=== PATIENT | female | born 1965 | race Caucasian/White ===

== ENCOUNTER 2019-05-26 15:56 | Emergency (ER) | payer OTHER ==
[2019-05-26 16:18] VITALS: BP 128/67
--- NOTE | 2019-05-26 16:43 | ED ---
Abdominal Pain/Female - HPI Summary HPI Summary: 54 yr old female with the complaint of epigastric abdominal pain. Onset of symptoms three days ago, and worse with sitting, better with standing. She states that she has not had an appetite today. She feels a little bloated in the abdomen. She has pain in both flank areas. She denies vomiting. she denies diarrhea. She denies urinary symptoms. She denies rash. She denies other complaints. - History of Current Complaint Chief Complaint: UCAbdominalPain Stated Complaint: ABDOMINAL AND LOW BACK PAIN Time Seen by Provider: 05/26/19 16:21 Pain Intensity: 7 Allergies/Adverse Reactions: Allergies Allergy/AdvReac Type Severity Reaction Status Date / Time No Known Allergies Allergy Verified 05/26/19 16:18 Home Medications: Home Medications NK [No Home Medications Reported] 05/26/19 [History Confirmed 05/26/19] PMH/Surg Hx/FS Hx/Imm Hx Infectious Disease History: No Infectious Disease History: Denies: Traveled Outside the [place] in Last 30 Days - Family History Known Family History: Positive: None - Social History Occupation: Employed Full-time Alcohol Use: None Substance Use Type: Reports: None Smoking Status (MU): Heavy Every Day Tobacco Smoker Review of Systems Constitutional: Negative Negative: Palpitations, Chest Pain Negative: Shortness Of Breath Positive: Abdominal Pain, Nausea. Negative: Vomiting, Diarrhea, Other Positive: no symptoms reported All Other Systems Reviewed And Are Negative: Yes Physical Exam Triage Information Reviewed: Yes Vital Signs On Initial Exam: Initial Vitals Temp Pulse Resp BP Pulse Ox 97.7 F 77 14 128/67 100 05/26/19 16:14 05/26/19 16:14 05/26/19 16:14 05/26/19 16:14 05/26/19 16:14 Vital Signs Reviewed: Yes Appearance: Positive: Well-Appearing, No Pain Distress Skin: Positive: Warm, Skin Color Reflects Adequate Perfusion Head/Face: Positive: Normal Head/Face Inspection Eyes: Positive: EOMI, MAGDALENA ENT: Positive: Normal ENT inspection Neck: Positive: Nontender Respiratory/Lung Sounds: Positive: Clear to Auscultation, Breath Sounds Present Cardiovascular: Positive: RRR. Negative: Murmur Abdomen Description: Positive: Other: - epigastric and RUQ tenderness. Musculoskeletal: Positive: Strength/ROM Intact Neurological: Positive: Sensory/Motor Intact, Alert, Oriented to Person Place, Time, CN Intact II-III Psychiatric: Positive: Normal Diagnostics - Vital Signs Vital Signs Temp Pulse Resp BP Pulse Ox 05/26/19 16:14 97.7 F 77 14 128/67 100 - Laboratory Lab Statement: Any lab studies that have been ordered have been reviewed, and results considered in the medical decision making process. Abdominal Pain Fem Course/Dx - Course Course Of Treatment: 54 yr old with decreased appetite, and no PO intake today with epigastric and RUQ tenderness. She was offered an ambulance to the ER but states she wants to drive herself. She verbalized she is going now to the hospital - Diagnoses Provider Diagnoses: Epigastric pain Discharge - Sign-Out/Discharge Documenting (check all that apply): Patient Departure All imaging exams completed and their final reports reviewed: No Studies - Discharge Plan Condition: Good Disposition: HOME-RECOMMEND TO ED Patient Education Materials: Acute Abdominal Pain (ED) Referrals: Marce Marr MD [Primary Care Provider] - Additional Instructions: YOU NEED TO GO TO THE HOSPITAL ER FOR FURTHER EVAULATION OF YOUR ABDOMINAL PAIN. - Billing Disposition and Condition Condition: GOOD Disposition: Home-Recommend to ED
== END 2019-05-26 16:42 | disposition home health service (06) ==
LOC: UCCORT 15:56
DX: R10.13 Epigastric pain (principal); F17.200 Nicotine dependence, unspecified, uncomplicated
CPT/HCPCS: 99202; G0463